=== PATIENT | male | born 1985 | race African-American/Black ===

== ENCOUNTER 2016-07-12 05:27 | Emergency (ER) | payer OTHER ==
[~2016-07-12] VITALS: Ht 185.4 cm; Wt 119.4 kg
[~2016-07-12 05:27] MED LIST: ASCA500 PO; MULTTAB PO; TRMO2580 TOP
[2016-07-12 05:33] VITALS: TEMP 36.6; Ht 185.4 cm; Wt 119.4 kg
[2016-07-12] MEDS ORDERED: IBUP-103 PO (06:18)
[2016-07-12] MEDS ORDERED: PRED50TA PO (06:20)
[2016-07-12] MEDS ORDERED: HYDR-5688 PO (06:20)
[2016-07-12 06:44] VITALS: BP 122/55; PULSE 80; O2SAT 99
--- NOTE | 2016-07-12 07:04 | DIAGNOSTIC IMAGING REPORT ---
RIGHT SHOULDER MIN 2 VIEWS ROUTINE CLINICAL HISTORY: Right shoulder pain. COMPARISON: None FINDINGS: There is no fracture. No osseous lesion is present. Apparent slight elevation of the distal right clavicle is unchanged since exam of April 28, 2010 and likely within normal limits. There is minimal AC joint arthrosis. IMPRESSION: 1. No acute fracture. 2. Minimal right AC joint arthrosis. Electronically signed by: William Saavedra M.D. 07/12/2016 7:03 AM Dictated Date/Time: 07/12/2016 7:02 AM
--- NOTE | 2016-07-12 22:08 | EMERGENCY ROOM VISIT NOTE ---
ED Visit Note First contact with patient: 05:38 CHIEF COMPLAINT: Shoulder pain HISTORY OF PRESENT ILLNESS: This 30-year-old male patient presents to the emergency department complaining of pain in the right shoulder for the past 2 months. The patient states that he was assisting in carrying a heavy trunk with several other members of his group. The trunk was dropped by other members, and this caused the patient's arm to take the full load of the weight. He felt his arm being pulled inferiorly and has had pain of his right shoulder ever since. He had drilled this past weekend and this appears to have exacerbated his symptoms. There is intermittent limitation of motion of the arm because of the pain. The pain is moderate, constant and increases with motion of the hand and arm. The patient states the pain is dull and 7/10. The patient has taken Advil and Tylenol without relief of the pain. No previous significant previous shoulder disease or injury. No numbness or tingling. No neck and no back pain. No chest pain or shortness of breath. No abdominal pain or nausea/vomiting. No cough. REVIEW OF SYSTEMS: A 6 system review of systems was performed with positives and pertinent negatives in the HPI. ALLERGIES: No known allergies MEDICATIONS: No chronic medications PMH: No chronic medical disease SOCIAL HISTORY: Employed and lives locally PHYSICAL EXAM: Vital Signs: Reviewed nurse's notes, vital signs stable. GENERAL : White male, in no acute distress, but appears to be in pain, well-developed, well-nourished. MUSCULOSKELETAL: There is no deformity in the contour of the right shoulder and there are no jeremy deformities noted. There is no sulcus sign. There is tenderness over the deltoid laterally and supraspinatus. The patient's range of motion is limited to abduction and external rotation. Supraspinatus strength is 3/5. There is no clavicle tenderness. No tenderness of the humerus, elbow, wrist, or hand. Rehab Nurse strength 5/5. Radial pulse 2+. NECK: No tenderness to palpation over the cervical spine. HEART: Regular rate and rhythm without murmurs gallops or rubs. LUNGS: Clear to auscultation bilaterally without wheezes, rales or rhonchi. No accessory muscle use. No retractions. NEURO: The patient is alert and oriented to person , place, and time. Normal sensation to light and sharp touch. Capillary refill less than 2 seconds. RIGHT SHOULDER MIN 2 VIEWS ROUTINE CLINICAL HISTORY: Right shoulder pain. COMPARISON: None FINDINGS: There is no fracture. No osseous lesion is present. Apparent slight elevation of the distal right clavicle is unchanged since exam of April 28, 2010 and likely within normal limits. There is minimal AC joint arthrosis. IMPRESSION: 1. No acute fracture. 2. Minimal right AC joint arthrosis. EMERGENCY DEPARTMENT COURSE: Physical exam and history were performed. Nursing notes and EMR were reviewed. The patient appears to have right shoulder pain ongoing for the past few months. X-ray was obtained and does not show acute fracture. The patient likely has a rotator cuff injury based on his exam and history. I will give him information to follow with orthopedics, but he may wish to follow with his providers through his employer. The patient will be given a short course of pain medication as well as an arm sling. He is to follow-up as directed and was invited back to the ER with any new, worsening , or concerning symptoms. Problem List Medical Problems: (1) Avulsion fracture of ankle Status: Resolved (2) Bronchitis Status: Resolved (3) Scabies Status: Resolved (4) URI (upper respiratory infection) Status: Resolved Current/Historical Medications Scheduled Prednisone (Prednisone), 50 MG PO DAILY Scheduled PRN Hydrocodone/Acetaminophen 5MG/325MG (Bernice 5MG/325MG), 1 TABLET PO Q6 PRN for Pain Ibuprofen Tab (Advil), 200-600 MG PO Q4H PRN for Pain or Fever Allergies Coded Allergies: POLLEN (Unverified Allergy, Mild, UNKNOWN, 07/12/16) Vital Signs Date Time Temp Pulse Resp B/P Pulse Ox O2 Delivery O2 Flow Rate FiO2 07/12/16 06:44 80 18 122/55 99 07/12/16 05:33 36.6 53 20 138/70 96 Room Air Departure Information Impression Primary Impression: Injury of right shoulder Dispostion Home / Self-Care Condition GOOD Prescriptions Prednisone (Prednisone) 50 Mg Tab 50 MG PO DAILY for 4 Days, #4 TAB Prov: Wellington Momin PA-C 07/12/16 Hydrocodone/Acetaminophen 5MG/325MG (Bernice 5MG/325MG) Tab 1 TABLET PO Q6 Y for Pain, #12 TAB For Initial Treatment Prov: Wellington Momin PA-C 07/12/16 Referrals Dannie Marrufo MD Forms HOME CARE DOCUMENTATION FORM, Work Instructions, Additional Instructions: Patient was seen and evaluated today in the emergency department fo medical care. May not use the right shoulder or right arm until cleared b orthopedics. IMPORTANT VISIT INFORMATION Patient Instructions My [facility] Additional Instructions You were seen and evaluated today on an emergency basis only. This is not a substitute for, or an effort to provide, complete comprehensive medical care. It is not possible to recognize and treat all injuries or illnesses in a single emergency department visit. For this reason it is recommended that you followup with Orthopedics as soon as possible for ongoing care and evaluation. We have provided information for [facility] orthopedics, Dr. Marrufo's office, as a convenience. For baseline pain relief you may alternate ibuprofen and acetaminophen every 4 hours for pain control. Take 600 mg ibuprofen (Advil) and then 4 hours later take 1000 mg acetaminophen (Tylenol). Do not take more than 3000 mg acetaminophen in a single day. Bernice (hydrocodone/acetaminophen) 5/325 mg every 6 hours as needed for worsening breakthrough pain. Do not drink or drive on Bernice. This medication will likely make you tired. Do not take Bernice and Tylenol at the same time as both contain acetaminophen. Bernice may cause constipation. You may wish to take an [id number] stool softener like Colace if this occurs. Take prednisone daily for the next 4 days Wear your arm sling for comfort. You may remove your arm from the sling and practice range of motion several times daily. You are welcome to return to the emergency department anytime with new, worsening, or concerning symptoms. Work Instructions Additional Work Instructions: Patient was seen and evaluated today in the emergency department for medical care. May not use the right shoulder or right arm until cleared by orthopedics.
== END 2016-07-12 06:44 | disposition home or self-care (01) ==
LOC: C.EDB 05:28
DX: S46.901A Unspecified injury of unspecified muscle, fascia and tendon at shoulder and upper arm level, right arm, initial encounter (principal); M25.511 Pain in right shoulder; X50.0XXA Overexertion from strenuous movement or load, initial encounter; M19.011 Primary osteoarthritis, right shoulder